=== PATIENT | female | born 1970 | race Caucasian/White ===

== ENCOUNTER 2018-12-15 12:23 | Emergency (ER) | payer OTHER ==
--- NOTE | 2018-12-15 13:09 | CT Report ---
Reason: R facial numbness Procedure Date: 12/15/2018 Accession Number: [id number] / [id number] Procedure: CT - Head W/O Stroke Protocol CPT Code: FULL RESULT: EXAM: CT HEAD EXAM DATE: 12/15/2018 12:59 PM. CLINICAL HISTORY: 48-year-old female. R facial numbness. COMPARISON: None. TECHNIQUE: Multiaxial CT images were obtained from the foramen magnum to the vertex. Reformats: Sagittal and coronal. IV contrast: None. In accordance with CT protocol optimization, one or more of the following dose reduction techniques were utilized for this exam: automated exposure control, adjustment of mA and/or KV based on patient size, or use of iterative reconstructive technique. FINDINGS: Parenchyma: No intraparenchymal hemorrhage. No evidence of mass, midline shift, or CT findings of acute infarction. Rogel-white differentiation is distinct. Extraaxial Spaces: Normal for age. No subdural or epidural collections identified. Ventricles: Normal in size and position. Sinuses and Orbits: Imaged paranasal sinuses, orbits, and mastoids show no significant abnormality. Bones: No evidence of fracture or calvarial defect. Other: None. IMPRESSION: No CT evidence of acute intracranial abnormality, specifically no CT evidence of acute infarct, intracranial hemorrhage, mass effect, midline shift, or hydrocephalus. ASPECTS 10. RADIA The critical test notification system was initiated by Dr. Brandy Spaulding at 01:07 PM on 12/15/2018. ADDENDUM: 12/15/18 13:10 The above critical test findings were discussed with Aime Churchill by Dr. Brandy Spaulding at 01:10 PM on 12/15/2018.
[2018-12-15 13:14] LABS: BASOPHILS # (AUTO) 0.1 10^3/uL (0.0-0.1); BASOPHILS % (AUTO) 0.6 %; EOSINOPHILS # (AUTO) 0.1 10^3/uL (0.0-0.7); EOSINOPHILS % (AUTO) 0.8 %; HGB - HEMOGLOBIN 11.6 g/dL (12.0-16.0); LYMPHOCYTES # (AUTO) 1.5 10^3/uL (1.5-3.5); LYMPHOCYTES % (AUTO) 18.5 %; MEAN CORPUSCULAR HEMOGLOBIN 28.4 pg (27.0-31.0); MEAN CORPUSCULAR HGB CONC 32.1 g/dL (32.0-36.0); MEAN CORPUSCULAR VOLUME 88.3 fL (81.0-99.0); MEAN PLATELET VOLUME 10.1 fL (7.9-10.8); MONOCYTES # (AUTO) 0.4 10^3/uL (0.0-1.0); MONOCYTES % (AUTO) 5.2 %; NEUTROPHILS # (AUTO) 5.8 10^3/uL (1.5-6.6); NEUTROPHILS % (AUTO) 74.4 %; PLT - PLATELET COUNT 298 10^3/uL (130-450); RED BLOOD COUNT 4.09 10^6/uL (4.20-5.40); RED CELL DISTRIBUTION WIDTH 12.3 % (12.0-15.0); WHITE BLOOD COUNT 7.8 x10^3/uL (4.8-10.8)
--- NOTE | 2018-12-15 13:23 | ED Physician Documentation ---
History of Present Illness - Stated complaint Stated Complaint: VISION LOSS RT EYE - History obtained from History obtained from: Patient, Family - History of Present Illness Timing: Today Pain level max: 0 Pain level now: 0 - Additonal information Additional information: 48-year-old female presents to the emergency department stating that around 1115 today she had blurry vision to the right eye. States it was like looking through a hologram. This was followed by numbness on the right side of the face. Extremities were not involved. Did not have a headache. Symptoms lasted for about 45 minutes with the vision issues of the right eye. Numbness is just now going away on the face. Has never had similar symptoms in the past. Nothing makes it better or worse. No recent changes to her medications. Does have a history of PSVT. No chest pain. No shortness of breath. No recent injuries. Review of Systems Ten Systems: 10 systems reviewed and negative Constitutional: denies: Fever, Chills Ears: denies: Loss of hearing, Ear pain Nose: denies: Rhinorrhea / runny nose, Congestion Cardiac: denies: Chest pain / pressure Respiratory: denies: Cough GI: denies: Abdominal Pain, Nausea, Vomiting, Diarrhea : denies: Dysuria Skin: denies: Rash Musculoskeletal: denies: Neck pain, Back pain Neurologic: denies: Focal weakness, Numbness, Confused, Altered mental status PD PAST MEDICAL HISTORY - Past Medical History Cardiovascular: Arrhythmia Respiratory: None Endocrine/Autoimmune: None GI: None 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 Psych: None Musculoskeletal: None Derm: None - Past Surgical History Past Surgical History: Yes /BOAT BUILDER AND 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: section Cardiovascular: Other - Present Medications Home Medications: Ambulatory Orders Medication Instructions Recorded Confirmed Lisinopril 5 mg PO DAILY 08/17/15 12/11/15 Loratadine [Claritin] 10 mg PO DAILY 08/17/15 12/11/15 SUMAtriptan [Imitrex] 25 mg PO ONCE PRN 08/17/15 12/11/15 Cephalexin [Keflex] 500 mg PO BID #9 capsule 12/11/15 Phenazopyridine HCl [Pyridium] 200 mg PO TID PRN #6 tablet 12/11/15 - Allergies Allergies/Adverse Reactions: Allergies Allergy/AdvReac Type Severity Reaction Status Date / Time acetaminophen [From Percocet] Allergy Unknown Verified 08/17/15 09:17 oxycodone HCl * Allergy Unknown Verified 08/17/15 09:17 [From Percocet] - Social History Does the pt smoke?: No Smoking Status: Never smoker Does the pt drink ETOH?: No Does the pt have substance abuse?: No - Immunizations Immunizations are current?: Yes - POLST Patient has POLST: No PD ED PE NORMAL - Vitals Vital signs reviewed: Yes - General General: Alert and oriented X 3, No acute distress - HEENT HEENT: PERRL, EOMI, Ears normal, Moist mucous membranes, Pharynx benign - Neck Neck: Supple, no meningeal sign, No bony TTP - Cardiac Cardiac: RRR, Strong equal pulses - Respiratory Respiratory: No respiratory distress, Clear bilaterally - Abdomen Abdomen: Soft, Non tender, Non distended - Derm Derm: Warm and dry - Neuro Neuro: Alert and oriented X 3, 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, No motor deficit, No sensory deficit, Normal speech Eye Opening: Spontaneous Motor: Obeys Commands Verbal: Oriented GCS Score: 15 - Psych Psych: Normal mood, Normal affect Results - Vitals Vitals: Vital Signs - 24 hr 12/15/18 12/15/18 12/15/18 12:36 14:00 14:30 Temperature 36 C L 36.8 C Heart Rate 71 72 69 Respiratory 16 18 19 Rate Blood Pressure 117/66 115/67 O2 Saturation 100 98 100 12/15/18 15:05 Temperature Heart Rate 70 Respiratory 18 Rate Blood Pressure 110/66 O2 Saturation 100 Oxygen O2 Source Room air - EKG (time done) 1308 Rate: Rate (enter#) (65) Rhythm: NSR [place]: Normal Intervals: Normal MT QRS: Normal Ischemia: Normal ST segments - Labs Labs: Laboratory Tests 12/15/18 12/15/18 12/15/18 13:07 13:07 13:07 WBC 7.8 RBC 4.09 L Hgb 11.6 L Hct 36.1 L MCV 88.3 MCH 28.4 MCHC 32.1 RDW 12.3 Plt Count 298 MPV 10.1 Neut # (Auto) 5.8 Lymph # (Auto) 1.5 [place] # (Auto) 0.4 Eos # (Auto) 0.1 Baso # (Auto) 0.1 Absolute Nucleated RBC 0.00 Nucleated RBC % 0.0 ESR 14 Sodium 140 Potassium 4.2 Chloride 103 Carbon Dioxide 27 Anion Gap 10.0 BUN 10 Creatinine 0.6 Estimated GFR (MDRD) 106 Glucose 98 Calcium 9.1 Total Bilirubin 0.9 AST 16 ALT 13 Alkaline Phosphatase 63 C-Reactive Protein Total Protein 7.4 Albumin 4.2 Globulin 3.2 Albumin/Globulin Ratio 1.3 Lipase 48 Urine Color Urine Clarity Urine pH Ur Specific [place] Urine Protein Urine Glucose (UA) Urine Ketones Urine Occult Blood Urine Nitrite Urine Bilirubin Urine Urobilinogen Ur Leukocyte Esterase Urine RBC Urine WBC Ur Epithelial Cells Ur Squamous Epith Cells Urine Bacteria Ur Microscopic Review Urine Culture Comments 12/15/18 12/15/18 13:07 14:40 WBC RBC Hgb Hct MCV MCH MCHC RDW Plt Count MPV Neut # (Auto) Lymph # (Auto) [place] # (Auto) Eos # (Auto) Baso # (Auto) Absolute Nucleated RBC Nucleated RBC % ESR Sodium Potassium Chloride Carbon Dioxide Anion Gap BUN Creatinine Estimated GFR (MDRD) Glucose Calcium Total Bilirubin AST ALT Alkaline Phosphatase C-Reactive Protein < 1.0 Total Protein Albumin Globulin Albumin/Globulin Ratio Lipase Urine Color YELLOW Urine Clarity CLEAR Urine pH 6.5 Ur Specific [place] 1.010 Urine Protein NEGATIVE Urine Glucose (UA) NEGATIVE Urine Ketones NEGATIVE Urine Occult Blood MODERATE H Urine Nitrite NEGATIVE Urine Bilirubin NEGATIVE Urine Urobilinogen 0.2 (NORMAL) Ur Leukocyte Esterase NEGATIVE Urine RBC 0-5 Urine WBC 0-3 Ur Epithelial Cells FEW Transitional Ur Squamous Epith Cells MOD Squamous H Urine Bacteria None Seen Ur Microscopic Review INDICATED Urine Culture Comments NOT INDICATED - Rads (name of study) head CT Radiology: Prelim report reviewed, EMP read contemporaneously, See rad report (no acute abnormality.) PD MEDICAL DECISION MAKING - ED course Complexity details: reviewed results, re-evaluated patient, considered differential, d/w patient, d/w family, d/w urban design consultant ED course: 48-year-old female presents to the emergency department with what appears to be a migraine without headache, but with aura. Discussed the case with neurology, Dr. Little at [facility] who recommends outpatient follow-up and MRI. Patient is asymptomatic here. She is well-appearing, nontoxic. Afebrile. No trauma. Patient counseled regarding signs and symptoms for which I believe and urgent re-evaluation would be necessary. Patient with good understanding of and agreement to plan and is comfortable going home at this time This document was made in part using voice recognition software. While efforts are made to proofread this document, sound alike and grammatical errors may occur. Patient has had migraines in the past Departure - Departure Disposition: 01 Home, Self Care Clinical Impression: Migraine aura without headache Condition: Good Instructions: ED Headache Migraine Follow-Up: Ifeoma Hollis, GLOBAL CEO [Primary Care Provider] - Within 3 Days Comments: It appears that you had a complex migraine today. I spoke with neurology regarding your case and they recommend an MRI within the next week. Return if you worsen. Discharge Date/Time: 12/15/18 15:06 NIHSS - Time Time: 13:04 - Level of Consciousness Level of consciousness: (0) Alert, Keenly responsive LOC Questions: (0) Answers both Q's correct LOC Commands: (0) Performs both correctly - Gaze Best Gaze: (0) Normal - Visual Visual: (0) No loss - Facial Palsy Facial Palsy: (0) Normal, symmetrical movement - Motor Arms (both separate) Motor Arm (right): (0) No drift Motor Arm (left): (0) No drift - Motor Legs (both separate) Motor Leg (right): (0) No drift Motor Leg (left): (0) No drift - Limb Ataxia Limb Ataxia: (0) Absent - Sensory Sensory: (0) Normal - Best Language Best Language: (0) No aphasia - Dysarthria Dysarthria: (0) Normal - Extinction and Inattention (formally neg Extinction and inattention: (0) No abnormality - Total Score/Results Total Score/Result: 0
[2018-12-15 13:40] LABS: ALBUMIN 4.2 g/dL (3.2-5.5); ALBUMIN/GLOBULIN RATIO 1.3 (1.0-2.2); BILIRUBIN,TOTAL 0.9 mg/dL (0.2-1.0); CALCIUM 9.1 mg/dL (8.5-10.3); CREATININE 0.6 mg/dL (0.4-1.0); TOTAL PROTEIN 7.4 g/dL (6.7-8.2)
[2018-12-15 14:52] LABS: BILIRUBIN,URINE NEGATIVE (NEGATIVE); GLUCOSE, URINE (UA) NEGATIVE (NEGATIVE); KETONES,URINE (UA) NEGATIVE (NEGATIVE); LEUKOCYTE ESTERASE, URINE NEGATIVE (NEGATIVE); NITRITE,URINE NEGATIVE (NEGATIVE); OCCULT BLOOD,URINE MODERATE (NEGATIVE); PH,URINE 6.5 PH (5.0-7.5); PROTEIN,URINE NEGATIVE (NEGATIVE); UROBILINOGEN,URINE 0.2 (NORMAL) E.U./dL (NORMAL)
[2018-12-15 14:53] LABS: CLARITY,URINE CLEAR (CLEAR)
[2018-12-15 15:04] LABS: EPITHELIAL CELLS,UR FEW Transitional /HPF (<= Few); RBC,URINE 0-5 /HPF (0-5); SQUAMOUS EPITHELIAL CELL,UR MOD Squamous (<= Few)
[2018-12-15 15:05] LABS: BACTERIA,URINE None Seen /HPF (None Seen)
[2018-12-15 15:06] VITALS: BP 110/66
== END 2018-12-15 15:06 | disposition home or self-care (01) ==
LOC: ED 12:23
DX: G43.109 Migraine with aura, not intractable, without status migrainosus (principal); Z86.79 Personal history of other diseases of the circulatory system
CPT/HCPCS: 36415; 70450; 80053; 81001; 81003; 83690; 85025; 85651; 86140; 87086; 93005; 99283; 99284

== ENCOUNTER 2018-12-31 08:49 | Outpatient (CLI) | payer OTHER ==
[2018-12-31] MEDS ORDERED: GADOBUTROL 7.5 MMOL/7.5 ML VIAL ONE (10:15)
[2018-12-31] MEDS ORDERED: GADOBUTROL 7.5 MMOL/7.5 ML VIAL IVP ONE (10:29)
--- NOTE | 2018-12-31 11:48 | MRI Report ---
Reason: VISUAL DISTURBANCE, FACIAL NUMBNESS Procedure Date: 12/31/2018 Accession Number: [id number] / [id number] Procedure: MRI - Brain W/WO CPT Code: FULL RESULT: EXAM: MRI BRAIN WITHOUT AND WITH CONTRAST EXAM DATE: 12/31/2018 10:45 AM. CLINICAL HISTORY: Visual disturbance, facial numbness. COMPARISON: None. TECHNIQUE: Multiplanar, multisequence T1-weighted and fluid-sensitive MR sequences of the brain were performed before and after administration of intravenous contrast. Sequences optimized for routine evaluation. Other: None. IV Contrast: Without and with 7.5 mL IV Gadavist. FINDINGS: Brain Volume: Normal for age. Parenchyma: There is no restricted diffusion to suggest acute or recent ischemic infarct. No cerebral hemorrhage. No mass effect, midline shift or abnormal subdural fluid collection. No midline developmental cerebral anomaly or Chiari malformation. There are 5 or 6 separate scattered punctate foci of nonspecific bilateral cerebral white matter T2 hyperintense signal changes. The largest of these measuring 2-3 mm are seen anteriorly on the right, reference images 20 and 16 from series 701. No abnormal enhancement. Ventricles/Cisterns: No hydrocephalus. No abnormal extra-axial fluid collection or hemorrhage. Orbits: Symmetric unremarkable appearing orbits. No exophthalmos or intraorbital space-occupying lesion, infiltrate, edema or abnormal enhancement. Normal appearance of the extraocular muscles and lacrimal glands. No evidence for edema, enhancement or mass of the optic nerves. Sella [place]: The pituitary gland, cavernous sinuses, suprasellar cistern and optic chiasm are unremarkable. IAC: Symmetric and unremarkable. Vasculature: Normal signal flow void is seen in the major arterial structures at the skull base. The dural sinuses are patent and enhance normally. Sinuses: Clear. Bones: No evidence for marrow edema or abnormal bone enhancement. Other: None. IMPRESSION: 1. No acute intracranial abnormality or enhancing mass. 2. Unremarkable appearance of the orbits. 3. Minimal nonspecific white matter T2 hyperintense signal changes. These may be secondary to chronic postischemic or postinflammatory gliosis. Migraine angiopathy may have this appearance. RADIA
== END 2018-12-31 08:50 | disposition home or self-care (01) ==
LOC: DI 08:49
PROVIDERS: ATTEND Nurse Practitioner Family
DX: G43.109 Migraine with aura, not intractable, without status migrainosus (principal)
CPT/HCPCS: 70553; A9585

== ENCOUNTER 2019-08-08 10:55 | Emergency (ER) | payer OTHER ==
[2019-08-08] MEDS ORDERED: PHENAZOPYRIDINE 100 MG TABLET PO STA (11:03)
--- NOTE | 2019-08-08 11:04 | ED Physician Documentation ---
PD HPI FEMALE - Stated complaint Stated Complaint: FEMALE - History obtained from History obtained from: Patient (Starting last night and more today she has frequency and dysuria. No associated flank pain nausea or fevers. 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 Cardiovascular: Other - Present Medications Home Medications: Ambulatory Orders Medication Instructions Recorded Confirmed Loratadine [Claritin] 10 mg PO DAILY 08/17/15 12/11/15 lisinopriL [Lisinopril] 5 mg PO DAILY 08/17/15 12/11/15 Multivitamin [Multiple Vitamins] 1 each PO 08/08/19 Nitrofurantoin Monohyd/M-Cryst 100 mg PO BID #10 capsule 08/08/19 [Macrobid 100 mg Capsule] Phenazopyridine HCl [Pyridium] 200 mg PO TID PRN #6 tablet 08/08/19 diltiaZEM [Cardizem] 08/08/19 08/08/19 - Allergies Allergies/Adverse Reactions: Allergies Allergy/AdvReac Type Severity Reaction Status Date / Time acetaminophen [From Percocet] Allergy Unknown Verified 08/08/19 11:05 oxycodone HCl * Allergy Unknown Verified 08/08/19 11:05 [From Percocet] - Social History Does the pt smoke?: No Smoking Status: Never smoker Does the pt drink ETOH?: No Does the pt have substance abuse?: No - Immunizations Immunizations are current?: Yes - POLST Patient has POLST: No PD ED PE NORMAL - Vitals Vital signs reviewed: Yes - General General: Alert and oriented X 3, No acute distress - Abdomen Abdomen: Non tender - Back Back: No CVA TTP - Neuro Neuro: Alert and oriented X 3, Normal speech Results - Vitals Vitals: Vital Signs - 24 hr 08/08/19 10:57 Temperature 37.2 C Heart Rate 86 Respiratory 18 Rate Blood Pressure 138/96 H O2 Saturation 98 Oxygen O2 Source Room air - Labs Labs: Laboratory Tests 08/08/19 10:58 Urine Color YELLOW Urine Clarity CLOUDY Urine pH 5.5 Ur Specific [place] 1.025 Urine Protein 30 H Urine Glucose (UA) NEGATIVE Urine Ketones NEGATIVE Urine Occult Blood LARGE H Urine Nitrite NEGATIVE Urine Bilirubin NEGATIVE Urine Urobilinogen 0.2 (NORMAL) Ur Leukocyte Esterase MODERATE H Urine RBC 6-10 H Urine WBC >25 H Ur Squamous Epith Cells FEW Squamous Urine Bacteria Rare Ur Microscopic Review INDICATED Urine Culture Comments INDICATED Urine HCG, Qual NEGATIVE Departure - Departure Disposition: Home, Self Care Clinical Impression: Cystitis Condition: Good Record reviewed to determine appropriate education?: Yes Instructions: ED UTI Cystitis Female Prescriptions: Nitrofurantoin Monohyd/M-Cryst [Macrobid 100 mg Capsule] 100 mg PO BID #10 capsule Phenazopyridine HCl [Pyridium] 200 mg PO TID PRN #6 tablet PRN Reason: dysuria Comments: We will culture your urine, the results should be done in 48-72 hours. If an antibiotic change is necessary we will call you. Return if worse in the meantime, especially if you develop increasing flank pain, fevers, or cannot keep down the medication. Your blood pressure was elevated today on check into the emergency department. This does not mean that you have hypertension, it is a common phenomenon to come to the emergency department and have elevated blood pressure. I recommend that you see your primary care physician within the week to have it rechecked when you are feeling better. Discharge Date/Time: 08/08/19 11:21
[2019-08-08 11:05] VITALS: BP 138/96
[2019-08-08 11:13] LABS: BILIRUBIN,URINE NEGATIVE (NEGATIVE); GLUCOSE, URINE (UA) NEGATIVE (NEGATIVE); KETONES,URINE (UA) NEGATIVE (NEGATIVE); LEUKOCYTE ESTERASE, URINE MODERATE (NEGATIVE); NITRITE,URINE NEGATIVE (NEGATIVE); OCCULT BLOOD,URINE LARGE (NEGATIVE); PH,URINE 5.5 PH (5.0-7.5); PROTEIN,URINE 30 mg/dL (NEGATIVE); UROBILINOGEN,URINE 0.2 (NORMAL) E.U./dL (NORMAL)
[2019-08-08 11:14] LABS: CLARITY,URINE CLOUDY (CLEAR); HCG UR QUAL NEGATIVE
[2019-08-08] MEDS ORDERED: NITROFURANTOIN MACRO 100 MG CAPSULE PO STA (11:16)
[2019-08-08 11:19] LABS: BACTERIA,URINE Rare /HPF (None Seen); SQUAMOUS EPITHELIAL CELL,UR FEW Squamous (<= Few)
== END 2019-08-08 11:21 | disposition home or self-care (01) ==
LOC: ED 10:55
DX: N30.90 Cystitis, unspecified without hematuria (principal)
CPT/HCPCS: 81001; 81025; 87086; 99283; A9270; 81003

== ENCOUNTER 2020-05-19 19:21 | Emergency (ER) | payer OTHER ==
[2020-05-19] MEDS ORDERED: SODIUM CHLORIDE 0.9% 1,000 ML IV STA (20:00)
[2020-05-19] MEDS ORDERED: ONDANSETRON 4 MG/2 ML VIAL IVP STA (20:00)
[2020-05-19] MEDS ORDERED: KETOROLAC 30 MG/ML VIAL IVP STA (20:00)
[2020-05-19 20:05] LABS: BASOPHILS # (AUTO) 0.1 10^3/uL (0.0-0.1); BASOPHILS % (AUTO) 0.6 %; EOSINOPHILS # (AUTO) 0.1 10^3/uL (0.0-0.7); EOSINOPHILS % (AUTO) 0.7 %; HGB - HEMOGLOBIN 12.2 g/dL (12.0-16.0); LYMPHOCYTES # (AUTO) 2.3 10^3/uL (1.5-3.5); LYMPHOCYTES % (AUTO) 15.6 %; MEAN CORPUSCULAR HEMOGLOBIN 28.1 pg (27.0-31.0); MEAN CORPUSCULAR HGB CONC 31.9 g/dL (32.0-36.0); MONOCYTES # (AUTO) 0.9 10^3/uL (0.0-1.0); MONOCYTES % (AUTO) 6.1 %; NEUTROPHILS # (AUTO) 11.2 10^3/uL (1.5-6.6); NEUTROPHILS % (AUTO) 76.8 %; PLT - PLATELET COUNT 367 10^3/uL (130-450); RED BLOOD COUNT 4.34 10^6/uL (4.20-5.40); RED CELL DISTRIBUTION WIDTH 12.3 % (12.0-15.0); WHITE BLOOD COUNT 14.5 x10^3/uL (4.8-10.8)
[2020-05-19 20:15] LABS: ALBUMIN 4.3 g/dL (3.2-5.5); ALBUMIN/GLOBULIN RATIO 1.3 (1.0-2.2); BILIRUBIN,TOTAL 0.5 mg/dL (0.2-1.0); CREATININE 0.7 mg/dL (0.4-1.0); TOTAL PROTEIN 7.7 g/dL (6.7-8.2)
--- NOTE | 2020-05-19 20:15 | ED Physician Documentation ---
PD HPI ABD PAIN - Stated complaint Stated Complaint: ABD PX - Chief complaint Chief Complaint: Abd Pain - History obtained from History obtained from: Patient - History of Present Illness Timing - onset: Enter time (1644), Today Timing - duration: Hours Timing - details: Abrupt onset, Still present Quality: Sharp, Pain Location: RLQ Improved by: Laying still Worsened by: Palpation Associated symptoms: Nausea. No: Vomiting Similar symptoms before: Has not had sx before Recently seen: Not recently seen - Additional information Additional information: 49 y/o female with acute onset of right sided abdominal pain radiating into the pelvis and groin. She has nausea and severe pain. The pain came on abruptly and persisted. There has been no break in the pain. Review of Systems Constitutional: denies: Fever, Chills, Myalgias Eyes: denies: Decreased vision Ears: denies: Ear pain Nose: denies: Rhinorrhea / runny nose, Congestion Throat: denies: Sore throat Cardiac: denies: Chest pain / pressure, Palpitations Respiratory: denies: Dyspnea, Cough, Wheezing GI: reports: Abdominal Pain, Nausea. 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 Cardiovascular: Other - Present Medications Home Medications: Ambulatory Orders Medication Instructions Recorded Confirmed Loratadine [Claritin] 10 mg PO DAILY 08/17/15 12/11/15 lisinopriL [Lisinopril] 5 mg PO DAILY 08/17/15 12/11/15 Multivitamin [Multiple Vitamins] 1 each PO 08/08/19 Nitrofurantoin Monohyd/M-Cryst 100 mg PO BID #10 capsule 08/08/19 [Macrobid 100 mg Capsule] Phenazopyridine HCl [Pyridium] 200 mg PO TID PRN #6 tablet 08/08/19 diltiaZEM [Cardizem] 08/08/19 08/08/19 Amoxicillin 05/19/20 05/19/20 HYDROcod/ACETAM 5/325 [Anatone 5/325] 1 - 2 ea PO Q6H PRN #15 05/20/20 Ondansetron Odt [Zofran] 4 mg TL Q6H PRN #10 tab 05/20/20 - Allergies Allergies/Adverse Reactions: Allergies Allergy/AdvReac Type Severity Reaction Status Date / Time acetaminophen [From Percocet] Allergy Unknown Verified 05/19/20 19:35 oxycodone HCl * Allergy Unknown Verified 05/19/20 19:35 [From Percocet] - Social History Does the pt smoke?: No Smoking Status: Never smoker Does the pt drink ETOH?: No Does the pt have substance abuse?: No - Family History Family history: reports: Non contributory - Immunizations Immunizations are current?: Yes - POLST Patient has POLST: No PD ED PE NORMAL - Vitals Vital signs reviewed: Yes (hypertensive mild ) - General General: Well developed/nourished, Other (shaking and in pain. ) - HEENT HEENT: Atraumatic, PERRL, EOMI - Neck Neck: Supple, no meningeal sign, No bony TTP - Cardiac Cardiac: RRR, No murmur - Respiratory Respiratory: No respiratory distress, Clear bilaterally - Abdomen Abdomen: Soft, Other (right lower quadrant tenderness to palpation without garding and there is pain referred to the RLQ with shaking of the abdomen. 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, No motor deficit, No sensory deficit, Normal speech Eye Opening: Spontaneous Motor: Obeys Commands Verbal: Oriented GCS Score: 15 - Psych Psych: Normal mood, Normal affect Results - Vitals Vitals: Vital Signs - 24 hr 05/19/20 05/19/20 05/19/20 19:31 19:42 21:46 Temperature 36.3 C L 36.3 C L Heart Rate 78 78 66 Respiratory 12 12 18 Rate Blood Pressure 131/76 H 131/76 H 127/74 O2 Saturation 100 100 100 05/19/20 05/20/20 23:02 00:03 Temperature Heart Rate 82 Respiratory 16 Rate Blood Pressure 118/74 O2 Saturation 99 Oxygen O2 Source Room air - Labs Labs: Laboratory Tests 05/19/20 05/19/20 05/19/20 19:53 19:53 19:57 WBC 14.5 H RBC 4.34 Hgb 12.2 Hct 38.2 MCV 88.0 MCH 28.1 MCHC 31.9 L RDW 12.3 Plt Count 367 MPV 10.0 Neut # (Auto) 11.2 H Lymph # (Auto) 2.3 [place] # (Auto) 0.9 Eos # (Auto) 0.1 Baso # (Auto) 0.1 Absolute Nucleated RBC 0.00 Nucleated RBC % 0.0 Sodium 132 L Potassium 4.3 Chloride 97 L Carbon Dioxide 25 Anion Gap 10.0 BUN 15 Creatinine 0.7 Estimated GFR (MDRD) 88 L Glucose 116 H Calcium 9.0 Total Bilirubin 0.5 AST 20 ALT 18 Alkaline Phosphatase 68 Total Protein 7.7 Albumin 4.3 Globulin 3.4 Albumin/Globulin Ratio 1.3 Lipase 43 Urine Color YELLOW Urine Clarity CLEAR Urine pH 5.5 Ur Specific [place] >=1.030 H Urine Protein NEGATIVE Urine Glucose (UA) NEGATIVE Urine Ketones NEGATIVE Urine Occult Blood MODERATE H Urine Nitrite NEGATIVE Urine Bilirubin NEGATIVE Urine Urobilinogen 0.2 (NORMAL) Ur Leukocyte Esterase NEGATIVE Urine RBC 6-10 H Urine WBC 0-3 Ur Squamous Epith Cells MANY Squamous H Urine Bacteria Rare Urine Mucus Few Strands Ur Microscopic Review INDICATED Urine Culture Comments NOT INDICATED - Rads (name of study) CT abpel with Radiology: Prelim report reviewed (see below for report), EMP read indepedently, See rad report u/s pelvis Radiology: Prelim report reviewed (see below) Procedures - Bedside sono Bedside sono by EMP: with the use of bedside ultrasound the right kidney is imaged and it is sonographically non-tender and there is evidence of mild hydronephrosis.l PD MEDICAL DECISION MAKING - ED course Complexity details: reviewed old records, reviewed results, re-evaluated patient, considered differential, d/w patient ED course: CT ab/pel with: 1. Probable 3 mm partially obstructing calcification of the right ureterovesicular junction causing delay in right renal function and mild inflammation. 2. Possible nonobstructing left lower pole intrarenal calcification. 3. Right ovarian dermoid measuring 4.5 cm. 4. 7 cm low-density left adnexal mass potentially an endometrioma, dermoid, or hemorrhagic cyst. Further evaluation with pelvic ultrasound is recommended. U/S pelvis: Impression: 8.4 cm hyperechoic mass in the left adnexa with internal vascularity. Internal vascularity is concerning for a solid tumor. Further evaluation with nonemergent contrast-enhanced female pelvis protocol MRI is recommended. Nonemergent referral to gynecology is recommended. Right ovarian dermoid cyst. Nonemergent referral to gynecology is recommended. If the dermoid is not surgically removed yearly ultrasound follow-up is recommended. Bernice- menopausal female with upper limit of normal endometrial thickness. Consider nonemergent endometrial tissue sampling. 49 y/o female with a history of migraines has developed acute right sided pain. The pain developed acutely at a high level and has persisted. There is radiation of the pain into the groin and there is evidence of hydronephrosis on bedside ultrasound exam. The suspicion is for a kidney stone but the exam is concerning for tenderness and referred tenderness. The patient is administered IV saline and toradal with zofran and this improves the pain some but still at a high level and she is administered IV diluadid. She has further improvement with the Dilaudid and following her pelvic ultrasound she has resolution of her pain. The technical product manager was able to see the stone at the [facility] and I suspect the patient has passed her stone. She does have incidental findings on her CT scan unrelated today to today's presentation which appear to be dermoid in nature. We will refer her to CEMETERY VAULT INSTALLER and I will provide a prescription for pain medication in the unlikely case that the stone has not actually passed. Departure - Departure Disposition: 01 Home, Self Care Clinical Impression: Ureterolithiasis, Dermoid cyst of both ovaries Condition: Stable Instructions: Cyst Ovarian About, ED Stone Renal Passed, ED Stone Renal W Colic Follow-Up: MAURI VICKERS ARNP [Primary Care Provider] - Ignacia Moore MD [Provider Admit Priv/Credential] - Prescriptions: HYDROcod/ACETAM 5/325 [Anatone 5/325] 1 - 2 ea PO Q6H PRN #15 PRN Reason: Pain Ondansetron Odt [Zofran] 4 mg TL Q6H PRN #10 tab PRN Reason: Nausea / Vomiting Discharge Date/Time: 05/20/20 00:41
[2020-05-19] MEDS ORDERED: IOVERSOL 320 100 ML VIAL IVP ONE ×2 (20:22→21:12)
[2020-05-19] MEDS ORDERED: HYDROmorphone 1 MG/ML CARPUJECT IVP STA (20:24)
[2020-05-19 20:30] LABS: BILIRUBIN,URINE NEGATIVE (NEGATIVE); GLUCOSE, URINE (UA) NEGATIVE (NEGATIVE); KETONES,URINE (UA) NEGATIVE (NEGATIVE); LEUKOCYTE ESTERASE, URINE NEGATIVE (NEGATIVE); NITRITE,URINE NEGATIVE (NEGATIVE); OCCULT BLOOD,URINE MODERATE (NEGATIVE); PH,URINE 5.5 PH (5.0-7.5); PROTEIN,URINE NEGATIVE (NEGATIVE); UROBILINOGEN,URINE 0.2 (NORMAL) E.U./dL (NORMAL)
[2020-05-19 20:38] LABS: BACTERIA,URINE Rare /HPF (None Seen); CLARITY,URINE CLEAR (CLEAR); MUCUS,URINE Few Strands; SQUAMOUS EPITHELIAL CELL,UR MANY Squamous (<= Few)
--- NOTE | 2020-05-19 22:10 | CT Report ---
PROCEDURE: Abdomen/Pelvis W INDICATIONS: RLQ pain to palp. R hydro CONTRAST: IV CONTRAST: Optiray 320 ml: 100 PO CONTRAST: *NO PO CONTRAST TECHNIQUE: After the administration of IV contrast, 5 mm thick sections acquired from the diaphragms to the symp hysis. 5 mm thick coronal and sagittal reformats were acquired. For radiation dose reduction, the f ollowing was used: automated exposure control, adjustment of mA and/or kV according to patient size. COMPARISON: None. FINDINGS: Image quality: Excellent. ABDOMEN: Lung bases: Lung bases are clear. Heart size is normal. Solid organs: There is mild right hydronephrosis, perinephric inflammation, and an asymmetric delay in nephrogram compared to the contralateral side. There is mild right hydroureter, however a definite ureteral stone is not well seen. There is a questionable calcification in the expected location of t he right ureterovesicular junction measuring roughly 3 mm. The liver, gallbladder, spleen, adrenal glands, and pancreas are normal. No biliary dilatation. Possi ble punctate nonobstructing left lower pole intrarenal calcification. Peritoneum and bowel: Bowel loops demonstrate normal wall thickness and caliber. No free fluid or a ir. Retrocecal appendix appears normal. Nodes and vessels: No retroperitoneal or mesenteric adenopathy by size criteria. Aorta and inferior vena cava are normal in size. Miscellaneous: No ventral hernias. PELVIS: Genitourinary: The urinary bladder is decompressed. Bladder wall thickness is normal. There is a serg puma fatty mass in the right ovary which is well-circumscribed and measures 4.5 cm in maximal diamete r. There is an involuting peripherally enhancing ovarian structure immediately cranial, likely corpus luteum. A homogeneous round low-density mass measuring 7.0 cm is present in the anterior left adnexa . The wall is thin and no septations are visible. The uterus is vertically oriented and has a normal appearance. Miscellaneous: No inguinal hernias or adenopathy. No inflammatory changes in the pelvis. Bones: No suspicious bony lesions. No vertebral body compression fractures. IMPRESSION: 1. Probable 3 mm partially obstructing calcification of the right ureterovesicular junction causing d elay in right renal function and mild inflammation. 2. Possible nonobstructing left lower pole intrarenal calcification. 3. Right ovarian dermoid measuring 4.5 cm. 4. 7 cm low-density left adnexal mass potentially an endometrioma, dermoid, or hemorrhagic cyst. Furt her evaluation with pelvic ultrasound is recommended. Reviewed by: Adrianne Houser MD on 05/19/2020 10:09 PM PST Approved by: Adrianne Houser MD on 05/19/2020 10:09 PM [facility] Station ID: [id number]
[2020-05-19 23:02] VITALS: BP 118/74
--- NOTE | 2020-05-20 09:55 | Ultrasound Report ---
PROCEDURE: Pelvic w/Transvag+Doppler Comp INDICATIONS: mass in pelvis TECHNIQUE: Real-time scanning was performed of the pelvic organs, with image documentation. Additional endovagi nal scanning was necessary due to incomplete visualization of the adnexal and endometrial structures by transabdominal scanning. COMPARISON: None. FINDINGS: No pathologic free abdominal or pelvic fluid. Uterus: Uterus is enlarged size at 10.4 x 6.4 x 5.7 cm. The endometrium measures 14.1 mm in combine d thickness. Ovaries: The right ovary is enlarged measuring 59 x 30 x 38 mm. Within the right adnexa, there is a complex mass measuring 75 x 39 x 40 mm. It is predominantly avascular with a hyperechoic component. T his corresponds to mass lesion identified on CT exam. The left ovary is normal in size. Within the le ft adnexa, a complex mass is identified measuring 80 x 43 x 63 mm. Increased internal vascularity is noted. No visualized normal variant tissue is identified. IMPRESSION: 1. Hyperechoic mass with internal vascularity in the left adnexa. Appearance of vascularity is concer nikky for mass such as malignancy. Further evaluation with MR pelvis and gynecology consult is recomme nded. 2. Right adnexal mass most consistent with dermoid. 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 3. Prominent endometrial thickness and perimenopausal female. Although no focal mass is identified, G YN consult of potential endometrial sampling is recommended, as indicated. The above findings are concordant with preliminary report. Reviewed by: Luba Fontanez MD on 05/20/2020 9:53 AM [facility] Approved by: Luba Fontanez MD on 05/20/2020 9:53 AM PST Station ID: [id number]
== END 2020-05-20 00:41 | disposition home or self-care (01) ==
LOC: ED 19:21
DX: N13.2 Hydronephrosis with renal and ureteral calculous obstruction (principal); D27.1 Benign neoplasm of left ovary; D27.0 Benign neoplasm of right ovary; R93.89 Abnormal findings on diagnostic imaging of other specified body structures
CPT/HCPCS: 36415; 74177; 76830; 76856; 80053; 81001; 83690; 85025; 93975; 96361; 96374; 96375; 99284; J1170; Q9967; 81003; 87086

== ENCOUNTER 2020-05-22 09:57 | Emergency (ER) | payer OTHER ==
--- NOTE | 2020-05-22 10:16 | ED Physician Documentation ---
PD HPI ABD PAIN - Stated complaint Stated Complaint: FEMALE - Chief complaint Chief Complaint: General - History obtained from History obtained from: Patient - History of Present Illness Timing - onset: How many days ago (4-5 days of lower right abd pain. Had improved with pain meds from recent ER visits, but pain significantly worse today and feeling of frequent urination but only small amounts out. Having some blood after urinating. No vaginal bleeding.) Timing - duration: Days Timing - details: Waxing and waning Quality: Cramping, Aching, Pain. No: Stabbing Location: RLQ, Suprapubic (today) Radiation: Right flank Associated symptoms: Nausea, Constipation (has not had BM for several days but does not have feeling of rectal fullness.). No: Fever, Diarrhea Recently seen: Emergency Dept (Seen 3 days ago with same, and Dx with ureterolithiasis 3 mm distal ureter (likely stone on CT with hydroureter/nephrosis). also finding of right adnexal dermoid cyst, and left adnexal mass. Referred to [facility]. Rx Hydrocodone for ureteral stone.) Review of Systems Constitutional: denies: Fever, Chills Cardiac: denies: Chest pain / pressure, Palpitations Respiratory: denies: Dyspnea, Cough GI: reports: Abdominal Pain (right lower and now also suprapubic as well.), Nausea. denies: Vomiting, Diarrhea : reports: Dysuria, Frequency (only small amounts of urine out at a time today.) Neurologic: denies: Generalized weakness, Near syncope PD PAST MEDICAL HISTORY - Past Medical History Cardiovascular: Arrhythmia Respiratory: None Neuro: Migraines, Other Endocrine/Autoimmune: None GI: None [facility]: None : Frequency Psych: None Musculoskeletal: None Derm: None - Past Surgical History Past Surgical History: Yes /[facility]: section Cardiovascular: Other - Present Medications Home Medications: Ambulatory Orders Medication Instructions Recorded Confirmed Loratadine [Claritin] 10 mg PO DAILY 08/17/15 12/11/15 lisinopriL [Lisinopril] 5 mg PO DAILY 08/17/15 12/11/15 Multivitamin [Multiple Vitamins] 1 each PO 08/08/19 Nitrofurantoin Monohyd/M-Cryst 100 mg PO BID #10 capsule 08/08/19 [Macrobid 100 mg Capsule] Phenazopyridine HCl [Pyridium] 200 mg PO TID PRN #6 tablet 08/08/19 diltiaZEM [Cardizem] 08/08/19 08/08/19 Amoxicillin 05/19/20 05/19/20 HYDROcod/ACETAM 5/325 [[place] 5/325] 1 - 2 ea PO Q6H PRN #15 05/20/20 Ondansetron Odt [Zofran] 4 mg TL Q6H PRN #10 tab 05/20/20 Phenazopyridine HCl [Pyridium] 100 mg PO TID PRN #15 tab 05/22/20 dexAMETHasone [Decadron] 4 mg PO DAILY #5 tab 05/22/20 - Allergies Allergies/Adverse Reactions: Allergies Allergy/AdvReac Type Severity Reaction Status Date / Time acetaminophen [From Percocet] Allergy Unknown Verified 05/19/20 19:35 oxycodone HCl * Allergy Unknown Verified 05/19/20 19:35 [From Percocet] - Social History Does the pt smoke?: No Smoking Status: Never smoker Does the pt drink ETOH?: No Does the pt have substance abuse?: No - Immunizations Immunizations are current?: Yes - POLST Patient has POLST: No PD ED PE NORMAL - Vitals Vital signs reviewed: Yes - General General: Alert and oriented X 3, Well developed/nourished - Neck Neck: Supple, no meningeal sign, No adenopathy - Cardiac Cardiac: RRR, No murmur - Respiratory Respiratory: Clear bilaterally - Abdomen Abdomen: Soft, Non distended, No organomegaly, Other (fullness and tender in suprapubic area. No percussion nor rebound. ) - Back Back: Other (mild right DVA tender) - Derm Derm: Normal color, Warm and dry Results - Vitals Vitals: Vital Signs - 24 hr 05/22/20 05/22/20 05/22/20 10:02 12:03 12:51 Temperature 36.3 C L 37.0 C Heart Rate 82 67 65 Respiratory 20 13 18 Rate Blood Pressure 132/76 H 123/65 133/72 H O2 Saturation 100 97 99 Oxygen O2 Source Room air - Labs Labs: Laboratory Tests 05/22/20 05/22/20 05/22/20 10:15 10:15 10:15 WBC 13.7 H RBC 4.18 L Hgb 11.8 L Hct 37.1 MCV 88.8 MCH 28.2 MCHC 31.8 L RDW 12.3 Plt Count 312 MPV 9.8 Neut # (Auto) 11.7 H Lymph # (Auto) 1.2 L Cook # (Auto) 0.7 Eos # (Auto) 0.0 Baso # (Auto) 0.1 Absolute Nucleated RBC 0.00 Nucleated RBC % 0.0 Sodium 139 Potassium 3.6 Chloride 102 Carbon Dioxide 23 Anion Gap 14.0 H BUN 10 Creatinine 0.8 Estimated GFR (MDRD) 76 L Glucose 105 H Calcium 9.2 Total Bilirubin 0.8 AST 19 ALT 16 Alkaline Phosphatase 62 Total Protein 7.5 Albumin 4.2 Globulin 3.3 Albumin/Globulin Ratio 1.3 Lipase 33 Urine Color LIGHT YELLOW Urine Clarity CLEAR Urine pH 6.0 Ur Specific L[place]n <=1.005 Urine Protein 100 H Urine Glucose (UA) NEGATIVE Urine Ketones NEGATIVE Urine Occult Blood MODERATE H Urine Nitrite NEGATIVE Urine Bilirubin NEGATIVE Urine Urobilinogen 0.2 (NORMAL) Ur Leukocyte Esterase NEGATIVE Urine RBC 0-5 Urine WBC 0-3 Ur Squamous Epith Cells FEW Squamous Urine Bacteria Rare Ur Microscopic Review INDICATED Urine Culture Comments NOT INDICATED Urine HCG, Qual NEGATIVE PD MEDICAL DECISION MAKING - ED course Complexity details: reviewed old records (recent ER visit with CT abd, 3 mm distal ureteral stone and mod hydro. No other stones on right. Incidental renal stone left. Adnexal masses with referral to [facility]. ), re-evaluated patient (feeling better with IV pain meds. Is not feeling urgency for urination right now, with 431 ml in bladder, so presume was higher amount when did have to urinate earlier in the ER. Condition will likely continue while still on pain meds for stone, so hugo for few days. ), considered differential (seems likely that she has not passed the stone yet, given resurgence of RLQ pain. But also having urinary retention, presume related to pain meds. That would be the pain lower abd. ), d/w patient Departure - Departure Disposition: 01 Home, Self Care Clinical Impression: Ureterolithiasis, Lower abdominal pain, Acute urinary retention Condition: Stable Record reviewed to determine appropriate education?: Yes Instructions: ED Retention Urinary Female, ED Stone Renal W Colic Follow-Up: CARLEY Montano [Provider Group] Prescriptions: dexAMETHasone [Decadron] 4 mg PO DAILY #5 tab Phenazopyridine HCl [Pyridium] 100 mg PO TID PRN #15 tab PRN Reason: Abdominal Pain Comments: Stay adequately hydrated. Use phenazopyridine for improvement in the pain from the stone and ureter. Tylenol 500 mg 4 times a day or the hydrocodone as needed for worse pain. Decadron steroid anti-inflammatory daily for the next several days to reduce ureter inflammation. The urinary retention is likely a side effect of local irritation perhaps from blood or more likely a side effect of the narcotic pain medicines. This should improve with decreased use of the narcotic pain medicines. Follow-up with your primary care in 2 to 3 days assuming you are feeling better. That would be for hopefully removal of the Hugo catheter as conditions improve. If you are following up with gynecology this week regarding the ovarian masses, they could potentially remove the catheter instead. Return if worse pain again. Discharge Date/Time: 05/22/20 12:52
[2020-05-22 10:26] LABS: BASOPHILS # (AUTO) 0.1 10^3/uL (0.0-0.1); BASOPHILS % (AUTO) 0.4 %; EOSINOPHILS % (AUTO) 0.1 %; HGB - HEMOGLOBIN 11.8 g/dL (12.0-16.0); LYMPHOCYTES # (AUTO) 1.2 10^3/uL (1.5-3.5); LYMPHOCYTES % (AUTO) 8.7 %; MEAN CORPUSCULAR HEMOGLOBIN 28.2 pg (27.0-31.0); MEAN CORPUSCULAR HGB CONC 31.8 g/dL (32.0-36.0); MEAN CORPUSCULAR VOLUME 88.8 fL (81.0-99.0); MEAN PLATELET VOLUME 9.8 fL (7.9-10.8); MONOCYTES # (AUTO) 0.7 10^3/uL (0.0-1.0); MONOCYTES % (AUTO) 5.2 %; NEUTROPHILS # (AUTO) 11.7 10^3/uL (1.5-6.6); NEUTROPHILS % (AUTO) 85.3 %; PLT - PLATELET COUNT 312 10^3/uL (130-450); RED BLOOD COUNT 4.18 10^6/uL (4.20-5.40); RED CELL DISTRIBUTION WIDTH 12.3 % (12.0-15.0); WHITE BLOOD COUNT 13.7 x10^3/uL (4.8-10.8)
[2020-05-22 10:28] LABS: BILIRUBIN,URINE NEGATIVE (NEGATIVE); GLUCOSE, URINE (UA) NEGATIVE (NEGATIVE); KETONES,URINE (UA) NEGATIVE (NEGATIVE); LEUKOCYTE ESTERASE, URINE NEGATIVE (NEGATIVE); NITRITE,URINE NEGATIVE (NEGATIVE); OCCULT BLOOD,URINE MODERATE (NEGATIVE); PROTEIN,URINE 100 mg/dL (NEGATIVE); UROBILINOGEN,URINE 0.2 (NORMAL) E.U./dL (NORMAL)
[2020-05-22 10:29] LABS: CLARITY,URINE CLEAR (CLEAR)
[2020-05-22 10:31] LABS: HCG UR QUAL NEGATIVE
[2020-05-22 10:36] LABS: ALBUMIN 4.2 g/dL (3.2-5.5); ALBUMIN/GLOBULIN RATIO 1.3 (1.0-2.2); BILIRUBIN,TOTAL 0.8 mg/dL (0.2-1.0); CALCIUM 9.2 mg/dL (8.5-10.3); CREATININE 0.8 mg/dL (0.4-1.0); TOTAL PROTEIN 7.5 g/dL (6.7-8.2)
[2020-05-22 10:39] LABS: RBC,URINE 0-5 /HPF (0-5); SQUAMOUS EPITHELIAL CELL,UR FEW Squamous (<= Few)
[2020-05-22 10:40] LABS: BACTERIA,URINE Rare /HPF (None Seen)
[2020-05-22] MEDS ORDERED: SODIUM CHLORIDE 0.9% 1,000 ML IV STA (10:40)
[2020-05-22] MEDS ORDERED: HYDROmorphone 1 MG/ML CARPUJECT IVP STA (10:40)
[2020-05-22] MEDS ORDERED: KETOROLAC 30 MG/ML VIAL IVP STA (10:40)
[2020-05-22] MEDS ORDERED: ONDANSETRON 4 MG/2 ML VIAL IVP STA (10:40)
[2020-05-22] MEDS ORDERED: PHENAZOPYRIDINE 100 MG TABLET PO STA (11:23)
[2020-05-22] MEDS ORDERED: DEXAMETHASONE 10 MG/ML VIAL IVP STA (11:23)
[2020-05-22 12:51] VITALS: BP 133/72
== END 2020-05-22 12:52 | disposition home or self-care (01) ==
LOC: ED 09:57
DX: N13.2 Hydronephrosis with renal and ureteral calculous obstruction (principal); R33.9 Retention of urine, unspecified; N83.8 Other noninflammatory disorders of ovary, fallopian tube and broad ligament
CPT/HCPCS: 36415; 80053; 81001; 81025; 83690; 85025; 96361; 96374; 96375; 99283; 99284; A9270; J1170; 81003; 87086

== ENCOUNTER 2020-05-23 10:01 | Emergency (ER) | payer OTHER ==
[2020-05-23 10:15] VITALS: BP 145/77
--- NOTE | 2020-05-23 12:01 | ED Physician Documentation ---
History of Present Illness - Stated complaint Stated Complaint: FEMALE - Chief complaint Chief Complaint: General - History obtained from History obtained from: Patient - Additonal information Additional information: 49-year-old woman presents with urinary catheter leakage and complaint that she has not been able to have a bowel movement since . She denies pain, back pain or abdominal pain, nausea vomiting. Review of Systems Constitutional: denies: Fever, Chills : reports: Other (+leakage around catheter). denies: Dysuria Musculoskeletal: denies: Back pain PD PAST MEDICAL HISTORY - Past Medical History Cardiovascular: Arrhythmia Respiratory: None Neuro: Migraines, Other Endocrine/Autoimmune: None GI: None CRM ARCHITECT: None : Frequency Psych: None Musculoskeletal: None Derm: None - Past Surgical History Past Surgical History: Yes /CRM ARCHITECT: section Cardiovascular: Other - Present Medications Home Medications: Ambulatory Orders Medication Instructions Recorded Confirmed Loratadine [Claritin] 10 mg PO DAILY 08/17/15 12/11/15 lisinopriL [Lisinopril] 5 mg PO DAILY 08/17/15 12/11/15 Multivitamin [Multiple Vitamins] 1 each PO 08/08/19 Nitrofurantoin Monohyd/M-Cryst 100 mg PO BID #10 capsule 08/08/19 [Macrobid 100 mg Capsule] Phenazopyridine HCl [Pyridium] 200 mg PO TID PRN #6 tablet 08/08/19 diltiaZEM [Cardizem] 08/08/19 08/08/19 Amoxicillin 05/19/20 05/19/20 HYDROcod/ACETAM 5/325 [[place] 5/325] 1 - 2 ea PO Q6H PRN #15 05/20/20 Ondansetron Odt [Zofran] 4 mg TL Q6H PRN #10 tab 05/20/20 Phenazopyridine HCl [Pyridium] 100 mg PO TID PRN #15 tab 05/22/20 dexAMETHasone [Decadron] 4 mg PO DAILY #5 tab 05/22/20 Sennosides/Docusate Sodium 1 each PO QDAC PRN 30 Days #30 tab 05/23/20 [Docusate Sodium-Sennosides Tab] polyethylene glycoL 3350 [Miralax] 17 gm PO DAILY PRN #10 packet 05/23/20 - Allergies Allergies/Adverse Reactions: Allergies Allergy/AdvReac Type Severity Reaction Status Date / Time acetaminophen [From Percocet] Allergy Unknown Verified 05/23/20 10:11 oxycodone HCl * Allergy Unknown Verified 05/23/20 10:11 [From Percocet] - Social History Does the pt smoke?: No Smoking Status: Never smoker Does the pt drink ETOH?: No Does the pt have substance abuse?: No - Immunizations Immunizations are current?: Yes - POLST Patient has POLST: No PD ED PE NORMAL - Vitals Vital signs reviewed: Yes - General General: Alert and oriented X 3, No acute distress, Well developed/nourished - HEENT HEENT: Atraumatic, PERRL, EOMI - Neck Neck: Supple, no meningeal sign - Abdomen Abdomen: Non tender, Non distended - Female Female : Other (catheter draining appropriately. switched 16 to 18 nigerian) - Rectal Rectal: Deferred - Back Back: No CVA TTP - Derm Derm: Normal color - Extremities Extremities: No deformity - Neuro Neuro: Alert and oriented X 3 - Psych Psych: Normal mood, Normal affect Results - Vitals Vitals: Vital Signs - 24 hr 05/23/20 10:11 Temperature 37.0 C Heart Rate 70 Respiratory 19 Rate Blood Pressure 145/77 H O2 Saturation 100 Oxygen O2 Source Room air PD MEDICAL DECISION MAKING - ED course ED course: 49-year-old woman presented with catheter leakage. We changed her catheter to a larger size with improvement. She also had questions about constipation and I gave her prescription for senna docusate and MiraLAX. Strict return precautions given. She will follow up with her primary doctor and with urology Departure - Departure Disposition: 01 Home, Self Care Clinical Impression: Urinary catheter complication, Constipation Condition: Good Instructions: Leg Bag Care Dc, ED Constipation Follow-Up: Becky Bacon MD [Physician No Access] - Prescriptions: Sennosides/Docusate Sodium [Docusate Sodium-Sennosides Tab] 1 each PO QDAC PRN 30 Days #30 tab PRN Reason: Constipation polyethylene glycoL 3350 [Miralax] 17 gm PO DAILY PRN #10 packet PRN Reason: Constipation Comments: You were seen in the emergency department for urinary catheter leakage. We changed your catheter to a larger size (16 to 18 n[place]ian). Follow-up with your primary doctor in 2 to 3 days for catheter evaluation and possible removal. Follow-up with Dr. Bacon at [facility] urology if you do not have improvement in symptoms. Return to the emergency department for any new or worsening symptoms or other concerns.
== END 2020-05-23 12:14 | disposition home or self-care (01) ==
LOC: ED 10:01
DX: T83.031A Leakage of indwelling urethral catheter, initial encounter (principal); Y84.6 Urinary catheterization as the cause of abnormal reaction of the patient, or of later complication, without mention of misadventure at the time of the procedure; K59.00 Constipation, unspecified
CPT/HCPCS: 99283

== ENCOUNTER 2020-05-24 10:16 | Emergency (ER) | payer OTHER ==
--- NOTE | 2020-05-24 10:53 | ED Physician Documentation ---
History of Present Illness - Stated complaint Stated Complaint: NAUSEA,CONSTIPATED - Chief complaint Chief Complaint: Abd Pain - History obtained from History obtained from: Patient - Additonal information Additional information: 49-year-old woman with recent diagnosis of kidney stones with urinary retention, status post Lal placement on 214 with pain medicine prescription at that time presents now with constipation that has caused progressive abdominal and rectal discomfort and mild nausea. she was seen here yesterday and prescribed miralax and senna/docusate but it hasn't helped yet. Patient denies fever, back pain, vomiting or other symptoms. 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 : Frequency Psych: None Musculoskeletal: None Derm: None - Past Surgical History Past Surgical History: Yes /BURR GRINDER: section Cardiovascular: Other - Present Medications Home Medications: Ambulatory Orders Medication Instructions Recorded Confirmed Loratadine [Claritin] 10 mg PO DAILY 08/17/15 12/11/15 lisinopriL [Lisinopril] 5 mg PO DAILY 08/17/15 12/11/15 Multivitamin [Multiple Vitamins] 1 each PO 08/08/19 Nitrofurantoin Monohyd/M-Cryst 100 mg PO BID #10 capsule 08/08/19 [Macrobid 100 mg Capsule] Phenazopyridine HCl [Pyridium] 200 mg PO TID PRN #6 tablet 08/08/19 diltiaZEM [Cardizem] 08/08/19 08/08/19 Amoxicillin 05/19/20 05/19/20 HYDROcod/ACETAM 5/325 [[place] 5/325] 1 - 2 ea PO Q6H PRN #15 05/20/20 Ondansetron Odt [Zofran] 4 mg TL Q6H PRN #10 tab 05/20/20 Phenazopyridine HCl [Pyridium] 100 mg PO TID PRN #15 tab 05/22/20 dexAMETHasone [Decadron] 4 mg PO DAILY #5 tab 05/22/20 Sennosides/Docusate Sodium 1 each PO QDAC PRN 30 Days #30 tab 05/23/20 [Docusate Sodium-Sennosides Tab] polyethylene glycoL 3350 [Miralax] 17 gm PO DAILY PRN #10 packet 05/23/20 - Allergies Allergies/Adverse Reactions: Allergies Allergy/AdvReac Type Severity Reaction Status Date / Time acetaminophen [From Percocet] Allergy Unknown Verified 05/24/20 10:20 oxycodone HCl * Allergy Unknown Verified 05/24/20 10:20 [From Percocet] - Social History Does the pt smoke?: No Smoking Status: Never smoker Does the pt drink ETOH?: Yes Does the pt have substance abuse?: No - Immunizations Immunizations are current?: Yes - POLST Patient has POLST: No PD ED PE NORMAL - Vitals Vital signs reviewed: Yes - General General: Alert and oriented X 3, No acute distress, Well developed/nourished - HEENT HEENT: Atraumatic, PERRL, EOMI - Neck Neck: Supple, no meningeal sign - Abdomen Abdomen: Non tender, Non distended - Rectal Rectal: Other (hard brown stool in vault. +nonthrombosed external hemorrhoid) - Back Back: No CVA TTP - Derm Derm: Normal color - Extremities Extremities: No deformity - Neuro Neuro: Alert and oriented X 3 Results - Vitals Vitals: Vital Signs - 24 hr 05/24/20 05/24/20 05/24/20 10:20 10:38 11:36 Temperature 37 C Heart Rate 82 76 68 Respiratory 20 16 16 Rate Blood Pressure 124/103 H 131/79 H 119/102 H O2 Saturation 98 98 99 Oxygen O2 Source Room air Procedures - General procedure General procedure: Disimpaction and mineral oil enema placement performed at bedside with CHRISSY Trent assisting. attempted to break up stool and disimpacted quite a bit. Patient tolerated well. EBL 0 . PD MEDICAL DECISION MAKING - ED course ED course: 49-year-old woman recently placed on opioid medication for kidney stones presents with constipation. Disimpacted stool and placed oil enema. Will reassess. patient had large BM, feels better. Departure - Departure Disposition: 01 Home, Self Care Clinical Impression: Constipation, Nausea Condition: Good Instructions: ED Constipation
[2020-05-24] MEDS ORDERED: ONDANSETRON ODT 4 MG TABLET TL STA (13:18)
[2020-05-24 13:23] VITALS: BP 121/97
== END 2020-05-24 13:52 | disposition home or self-care (01) ==
LOC: ED 10:16
DX: K59.00 Constipation, unspecified (principal); R11.0 Nausea; K64.4 Residual hemorrhoidal skin tags; Z87.442 Personal history of urinary calculi
CPT/HCPCS: 99282; 99284; Q0162

== ENCOUNTER 2020-06-09 11:11 | Outpatient (CLI) | payer OTHER | END 2020-06-09 11:12 | disposition home or self-care (01) | LOC: LAB 11:11 | PROVIDERS: ATTEND Obstetrics & Gynecology | DX: N83.9 Noninflammatory disorder of ovary, fallopian tube and broad ligament, unspecified (principal) | CPT/HCPCS: 36415; 82378; 86304 ==

== ENCOUNTER 2020-07-04 09:13 | Outpatient (CLI) | payer OTHER ==
[2020-07-04 09:51] LABS: BASOPHILS # (AUTO) 0.1 10^3/uL (0.0-0.1); BASOPHILS % (AUTO) 1.1 %; EOSINOPHILS # (AUTO) 0.1 10^3/uL (0.0-0.7); EOSINOPHILS % (AUTO) 1.3 %; HCT - HEMATOCRIT 37.4 % (37.0-47.0); HGB - HEMOGLOBIN 11.9 g/dL (12.0-16.0); LYMPHOCYTES # (AUTO) 1.6 10^3/uL (1.5-3.5); MEAN CORPUSCULAR HEMOGLOBIN 27.7 pg (27.0-31.0); MEAN CORPUSCULAR HGB CONC 31.8 g/dL (32.0-36.0); MEAN CORPUSCULAR VOLUME 87.2 fL (81.0-99.0); MEAN PLATELET VOLUME 10.2 fL (7.9-10.8); MONOCYTES # (AUTO) 0.4 10^3/uL (0.0-1.0); MONOCYTES % (AUTO) 5.2 %; NEUTROPHILS # (AUTO) 5.3 10^3/uL (1.5-6.6); NEUTROPHILS % (AUTO) 71.1 %; PLT - PLATELET COUNT 341 10^3/uL (130-450); RED BLOOD COUNT 4.29 10^6/uL (4.20-5.40); RED CELL DISTRIBUTION WIDTH 12.6 % (12.0-15.0); WHITE BLOOD COUNT 7.4 x10^3/uL (4.8-10.8)
[2020-07-04 10:09] LABS: ALBUMIN 4.2 g/dL (3.2-5.5); ALBUMIN/GLOBULIN RATIO 1.3 (1.0-2.2); BILIRUBIN,TOTAL 0.4 mg/dL (0.2-1.0); CALCIUM 9.4 mg/dL (8.5-10.3); CREATININE 0.6 mg/dL (0.4-1.0); POTASSIUM 4.2 mmol/L (3.5-5.0); TOTAL PROTEIN 7.4 g/dL (6.7-8.2)
== END 2020-07-04 09:14 | disposition home or self-care (01) ==
LOC: LAB 09:13
PROVIDERS: ATTEND Obstetrics & Gynecology
DX: Z01.818 Encounter for other preprocedural examination (principal); D27.0 Benign neoplasm of right ovary; N83.292 Other ovarian cyst, left side
CPT/HCPCS: 36415; 80053; 85025; 86850; 86900; 86901

== ENCOUNTER 2020-07-06 06:23 | Day surgery (SDC) | payer OTHER ==
--- NOTE | 2020-07-04 09:10 | CONSULTATION NOTE ---
Consultation Report: Anesthesia was requested to see this pleasant woman as she has a history of SVT and was treated with ablation. She it to have laparoscopic removal of ovarian cyst. She sees draw tender in [place] for yearly follow-ups and has had no recent issues or changes in management. She takes diltiazem for SVT as still has rare episodes. She had not had any problems with past surgeries (C/S, ablation) and has no other significant health problems. Her airway is MP 1, full ROM of neck, own intact dention.
[~2020-07-06 06:23] MED LIST: ACETAMINOPHEN 1,000 MG/100 ML 100 ML IV ONE; GABAPENTIN 400 MG CAPSULE ONE; ceFAZolin 2 GM/50 ML 2 GM/50 ML BAG IV ONE
[2020-07-06 06:40] LABS: HCG UR QUAL NEGATIVE
--- NOTE | 2020-07-06 07:01 | ANESTHESIA ---
Pre-Anesthesia VS, & Labs - Diagnosis right ovary dermoid cyst - Procedure Laparoscopic right ovarian cystectomy Vital Signs: Temp Pulse Resp BP Pulse Ox 36.4 C L 78 20 119/79 97 07/06/20 06:30 07/06/20 06:30 07/06/20 06:30 07/06/20 06:30 07/06/20 06:30 Height: 5 ft 4 in Weight (kg): 77.4 kg Body Mass Index: 29.2 BMI Classification: Overweight - NPO >8 hours - Is Patient ?: No - Lab Results Current Lab Results: Laboratory Tests 07/06/20 06:45: POC Whole Bld Glucose 96 Lab results reviewed: Yes Home Medications and Allergies Home Medications: Ambulatory Orders Cyanocobalamin (Vitamin B-12) [Vitamin B-12] 1,000 mcg PO DAILY 07/04/20 Sumatriptan Succinate [Imitrex] 100 mg PO ONCE PRN 07/04/20 Loratadine [Claritin] 10 mg PO DAILY 08/17/15 lisinopriL [Lisinopril] 5 mg PO DAILY 08/17/15 Multivitamin [Multiple Vitamins] 1 each PO DAILY 08/08/19 diltiaZEM [Cardizem] 120 mg PO DAILY 08/08/19 Cyanocobalamin (Vitamin B-12) [Vitamin B-12] 1,000 mcg PO DAILY 07/04/20 Sumatriptan Succinate [Imitrex] 100 mg PO ONCE PRN 07/04/20 Allergies/Adverse Reactions: Allergies Allergy/AdvReac Type Severity Reaction Status Date / Time acetaminophen [From Percocet] Allergy Unknown Verified 05/24/20 10:20 oxycodone HCl * Allergy vomiting, Verified 07/04/20 10:26 [From Percocet] diarrhea Anes History & Medical History - Anesthetic History Anesthesia Complications: reports: No previous complications Family history of Anesthesia Complications: Denies Family history of Malignant Hyperthermia: Denies - Medical History Cardiovascular: reports: Hypertension, Arrhythmia (SVT on diltiazem. Follows cardiologists with no recent problems. Took Diltiazem this AM) Pulmonary: reports: None Gastrointestinal: reports: None Urinary: reports: Kidney stones Neuro: reports: Migraines, Other Musculoskeletal: reports: None Endocrine/Autoimmune: reports: None Blood Disorders: reports: None Skin: reports: None Smoking Status: Never smoker - Surgical History Cardiothoracic: reports: Other Gynecologic: reports: section Exam General: Alert, Oriented x3, Cooperative, No acute distress Dental: WNL Mouth Openin Fingerbreadth Neck Mobility: Normal Mallampati classification: I Respiratory: Lungs clear, Normal breath sounds, No respiratory distress, No accessory muscle use Cardiovascular: Regular rate, Normal S1, Normal S2, No murmurs Plan Anesthesia Type: General Consent for Procedure(s) Verified and Reviewed: Yes Code Status: Attempt Resuscitation ASA classification: 2-Mild systemic disease Is this case an emergency?: No
[2020-07-06] MEDS ORDERED: fentaNYL 100 MCG/2 ML VIAL IVP PRN (07:03)
[2020-07-06] MEDS ORDERED: ONDANSETRON 4 MG/2 ML VIAL IVP PRN ×2 (07:03→10:46)
[2020-07-06] MEDS ORDERED: MORPHINE 2 MG/ML CARPUJECT IVP PRN (07:03)
[2020-07-06] MEDS ORDERED: ePHEDrine 50 MG/ML VIAL IVP PRN (07:03)
[2020-07-06] MEDS ORDERED: HYDROmorphone 0.5 MG/0.5 ML SYRINGE IVP PRN (07:03)
[2020-07-06] MEDS ORDERED: NALOXONE 0.4 MG/ML VIAL IVP PRN (07:03)
[2020-07-06] MEDS ORDERED: ATROPINE ABBOJECT 1 MG/10 ML SYRINGE IVP PRN (07:03)
[2020-07-06] MEDS ORDERED: METOCLOPRAMIDE 10 MG/2 ML VIAL IVP PRN (07:03)
[2020-07-06] MEDS ORDERED: BUPIVACAINE 0.25% PF 30 ML VIAL ONE ×2 (07:34→09:58)
[2020-07-06] MEDS ORDERED: LACTATED RINGERS 1,000 ML IV SCH (08:00)
[2020-07-06] MEDS ORDERED: MIDAZOLAM 2 MG/2 ML VIAL ONE (08:05)
[2020-07-06] MEDS ORDERED: fentaNYL 100 MCG/2 ML VIAL ONE (08:05)
[2020-07-06] MEDS ORDERED: HYDROmorphone 1 MG/ML CARPUJECT ONE (08:46)
[2020-07-06] MEDS ORDERED: BUPIVACAINE 0.5% PF 30 ML VIAL INFIL ONE ×2 (08:55)
[2020-07-06] MEDS ORDERED: BUPIVACAINE 0.25% PF 30 ML VIAL SUBQ ONE ×2 (09:49)
[2020-07-06] MEDS ORDERED: LIDOCAINE MPF 2%-EPI 1:200000 20 ML VIAL SUBQ ONE ×2 (09:50)
[2020-07-06] MEDS ORDERED: LIDOCAINE 2%-EPI 1:100000 20 ML MDV ONE (09:56)
[2020-07-06] MEDS ORDERED: BUPIVACAINE 0.5% PF 30 ML VIAL ONE (09:57)
[2020-07-06] MEDS ORDERED: LIDOCAINE MPF 2%-EPI 1:200000 20 ML VIAL ONE (10:00)
[2020-07-06] MEDS ORDERED: SUGAMMADEX 200 MG/2 ML VIAL IVP ONE (10:42)
[2020-07-06] MEDS ORDERED: LACTATED RINGERS 1,000 ML IV ONE ×2 (10:51→12:08)
--- NOTE | 2020-07-06 10:51 | OPERATIVE REPORT ---
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
--- NOTE | 2020-07-06 11:20 | OPERATIVE REPORT ---
DATE OF SERVICE: 07/06/2020 Physician: Eitan Lorenzo MD PREOPERATIVE DIAGNOSES: Right ovarian dermoid, left ovarian cyst. POSTOPERATIVE DIAGNOSES: Left ovarian dermoid cyst with right ovarian simple cyst, pelvic endometriosis. SURGEON: Eitan Lorenzo MD NIGHT MANAGER: Willa Child MD ANESTHESIA: Argenis Pierre CRNA ANESTHETIC: General via endotracheal tube. IV FLUIDS: 1000 mL. URINE OUTPUT: 350 mL. ESTIMATED BLOOD LOSS: 25 mL. FINDINGS: Upon entering the abdominal cavity, there was evidence of a very large left ovarian cyst, and also a cyst on the right ovary. There was evidence of pelvic endometriosis, both in the anterior pelvic wall of the cul-de-sac as well as in the posterior leaves of the broad ligament. Liver appeared to be normal. DESCRIPTION OF PROCEDURE: Following adequate endotracheal anesthesia, patient was placed in dorsal lithotomy position in [place] stirrups. Pelvic examination performed, at which time there was a palpable ovarian mass bilaterally. She was then prepped and draped in the usual fashion. A timeout was performed, at which concerns were addressed. A speculum was then placed in the vagina. The cervix was visualized, grasped with a single-tooth tenaculum, and dilated up to size 8 mm. A HUMI manipulator was then placed in the uterus. At this point, 5 mL of 0.25% Marcaine was injected into the uterosacral ligaments bilaterally. Care was taken to aspirate to ensure that none of this was intravascular. A stab wound was then made in the subumbilical region, and then a 5 mm trocar was placed under direct visualization. This was done after local anesthesia. Two additional ports were placed in both the left and right lower quadrants. This was done following skin incision as well as local anesthetic. The pelvis was inspected, and the large ovarian cysts were noted. There was no evidence of any ovarian tissue on the left-hand side. However, the right side shows an area, which showed ovarian tissue. For this reason, it was decided to take the left tube and ovary out. The left tube was taken out utilizing the LigaSure. Care was taken to avoid any injury to the additional adjacent organs. At this point, the meso-ovarica was doubly cauterized and then transected with the LigaSure. This was then freed from its attachments. The right lower quadrant incision was then extended, and a 11 mm port was then placed. An EndoCatch was then inserted, and the ovary was placed in the bag. This was brought up to the abdominal wall. This was noted to be too large to bring through the port, so it was drained initially with a 22-gauge needle, which was not adequate. Then, an 18-gauge needle was utilized, and this was once again not adequate. An incision was made on the cyst, and copious amounts of fatty sebaceous material came through the incision. This was removed utilizing an rear admiral aspirator. Care was taken to try and minimize the amount of fluid that would get on the abdominal wall as well as in the peritoneal cavity. This was then eventually brought through the incision with little or no spill intraabdominal. The LigaSure sites were inspected. There was no evidence of any bleeding. The right tube was then grasped with a Prestige, and then utilizing unipolar electrocautery with scissors a dotted line was made on the edge of the ovary, dividing it from the viable ovarian tissue from that of the ovarian cyst. A second 5 mm port was placed following local anaesthetic injection. Then, utilizing both blunt and sharp dissection, the cyst was freed from its bed. There was some bleeding noted. This was treated with electrocautery, unipolar. At this point, the cyst was then placed in a second EndoCatch, brought up through the incision and drained with an 18-gauge needle, and then brought through the incision wall itself. The ovarian cyst bed was inspected, and once again electrocautery was used for hemostasis. Surgicel was then placed and watched for roughly 3 minutes. There was no evidence of any further bleeding from this ovarian site. The pelvis was inspected in its entirety. There was no evidence of any bleeding. It was then irrigated. The right lower quadrant port was removed, and then this was closed utilizing a Ike-Elizabeth with 0 Vicryl. The additional ports were then removed, and the CO2 was allowed to escape. All ports were then closed utilizing 4-0 Monocryl subcuticular. Patient tolerated procedure well and was taken to recovery in stable condition. Sponge and needle counts were correct. TD: 07/06/2020 11:10 emmie WILKES
--- NOTE | 2020-07-06 11:33 | ANESTHESIA POST OP EVALUATION ---
Anesthesia Post Eval - Post Anesthesia Eval Vitals: Last Vital Signs Temp 36.2 C L 07/06/20 11:27 Pulse 67 07/06/20 11:27 Resp 10 L 07/06/20 11:27 BP 109/66 07/06/20 11:27 Pulse Ox 96 07/06/20 11:27 CV Function Including HR & BP: positive: Stable Pain Control: positive: Satisfactory Nausea & Vomiting: positive: Negative Mental Status: positive: Baseline Respiratory Status: Airway Patent Hydration Status: Satisfactory Anesthesia Complications: positive: None
[2020-07-06] MEDS ORDERED: ONDANSETRON 4 MG/2 ML VIAL ONE (13:03)
[2020-07-06 13:50] VITALS: BP 121/73
== END 2020-07-06 06:24 | disposition home or self-care (01) ==
LOC: SDS 06:23
PROVIDERS: ATTEND Obstetrics & Gynecology
PROC: 0UB74ZZ Excision of Bilateral Fallopian Tubes, Percutaneous Endoscopic Approach (ICD-10-PCS; 2020-07-06)
PROC: 0UB14ZZ Excision of Left Ovary, Percutaneous Endoscopic Approach (ICD-10-PCS; principal; 2020-07-06 07:30)
DX: D27.1 Benign neoplasm of left ovary (principal); D27.0 Benign neoplasm of right ovary; I47.1 Supraventricular tachycardia; I10 Essential (primary) hypertension; E66.3 Overweight; Z68.29 Body mass index [BMI] 29.0-29.9, adult; N80.3 Endometriosis of pelvic peritoneum; Z98.890 Other specified postprocedural states
CPT/HCPCS: 58661; 81025; A9270; J0131; J0690; J1170; J7120

== ENCOUNTER 2023-03-20 08:00 | Outpatient (CLI) | payer OTHER | END 2023-03-20 23:59 | disposition home or self-care (01) | LOC: LAB.N 08:00 | PROVIDERS: ATTEND Physician Assistant Medical | DX: J02.9 Acute pharyngitis, unspecified (principal) | CPT/HCPCS: 87070 ==